=== PATIENT | female | born 1995 | race Caucasian/White ===

== ENCOUNTER 2024-02-19 04:45 | Inpatient (IN) | payer BC, SELFPAY ==
[2024-02-19] VITALS (284 sets, daily range): BP systolic 79–140; BP diastolic 34–83; PULSE 64–176; TEMP 36.8–37.3; O2SAT 77–100; BMI 44.4
--- NOTE | 2024-02-19 05:12 | LDADM ---
This patient, Ria Resendez, was admitted to Labor/Delivery/Recovery 102 on 02/19/24 at 04:45. Plans for labor, pain management and were discussed with patient. Patient/family oriented to hospital policies and general routines including ID bracelet, bed and alarms, visiting hours, pain management, procedures, bathroom and other care routines, personal items, smoking policy, room service/diet and guest tray routines, security routines, and visiting hours. Patient/Family are encouraged to report perceived risks to care and to ask questions if they do not understand what they are told or what they should do. See OBIX for further documentation.
[2024-02-19 05:33] LABS: Basophils Percent Auto 0.3 % (0.2-1.2); Eosinophils Absolute Auto 0.1 K/mm3 (0-0.3); Eosinophils Percent Auto 0.8 % (0-4.4); Hematocrit 36.9 % (37.0-47.0); Hemoglobin 12.5 g/dL (12.0-15.0); Immature Granulocyte Absolute 0.11 K/mm3 (0.00-0.031); Immature Granulocyte Percent A 0.9 % (0-0.5); Lymphocytes Absolute Auto 1.95 K/mm3 (0.9-3.2); Lymphocytes Percent Auto 16.8 % (18.3-44.2); Mean Corpuscular HGB Conc 33.9 g/dl (32-36); Mean Corpuscular Hemoglobin 28.9 pg (26-34); Mean Corpuscular Volume 85.2 fl (80-100); Mean Platelet Volume 9.9 fl (7.4-10.4); Monocytes Absolute Auto 0.7 K/mm3 (0.1-0.6); Monocytes Percent Auto 5.9 % (2.6-8.5); Neutrophils Absolute Auto 8.7 K/mm3 (1.3-6.7); Neutrophils Percent Auto 75.3 % (45.5-73.1); Platelet Count Result 185 k/mm3 (150-375); Red Blood Count 4.33 M/mm3 (4.2-5.4); Red Cell Distribution Width 14.3 % (11.5-14.5); White Blood Count 11.6 K/mm3 (4.5-10.0)
[2024-02-19] MEDS: OXYTOCIN 30 UNITS/NS 500 ML 30 UNITS/500 ML BAG IV CONT (06:00)
[2024-02-19 06:16] LABS: Rapid Plasma Reagin Non-Reactive (NonReactive)
--- NOTE | 2024-02-19 06:16 | WPDANESEPP ---
Anes - Eval Pre Procedure Procedure: Labor epidural Date/Time: 02/19/24 06:16 Surgeon: Joel Preop Diagnosis: Abdominal pain with contractions Pre Op Diagnosis: IOL Patient Data Age: 28 Gender: F Height: Weight: Last Vital Signs Pulse 88 02/19/24 05:59 BP 125/77 02/19/24 05:59 Allergies Allergy/AdvReac Type Severity Reaction Status Date / Time hydrocodone [From Vicodin] Allergy Itching Verified 01/25/24 15:48 Home Medications Medication Instructions Recorded Confirmed Type prenat.vits,naveen,ish-xvcn-pugne 1 tablet 01/25/24 History Laboratory Tests 02/19/24 05:10 WBC 11.6 H K/mm3 (4.5-10.0) RBC 4.33 M/mm3 (4.2-5.4) Hgb 12.5 g/dL (12.0-15.0) Hct 36.9 L % (37.0-47.0) MCV 85.2 fl (80-100) MCH 28.9 pg (26-34) MCHC 33.9 g/dl (32-36) RDW 14.3 % (11.5-14.5) Plt Count 185 k/mm3 (150-375) MPV 9.9 fl (7.4-10.4) Immature Gran % (Auto) 0.9 H % (0-0.5) Neut % (Auto) 75.3 H % (45.5-73.1) Lymph % (Auto) 16.8 L % (18.3-44.2) [place] % (Auto) 5.9 % (2.6-8.5) Eos % (Auto) 0.8 % (0-4.4) Baso % (Auto) 0.3 % (0.2-1.2) Lymph # (Auto) 1.95 K/mm3 (0.9-3.2) [place] # (Auto) 0.7 H K/mm3 (0.1-0.6) Eos # (Auto) 0.1 K/mm3 (0-0.3) Baso # (Auto) 0.0 K/mm3 (0.0-0.1) Abs Immat Gran (auto) 0.11 H K/mm3 (0.00-0.031) Absolute Neuts (auto) 8.7 H K/mm3 (1.3-6.7) Absolute Nucleated RBC 0.000 K/mm3 (0.0-0.012) Nucleated RBC % 0.0 % (0.0-0.2) RPR Non-reactive (NonReactive) HIV 1&2 Ab/P24 Ag 4thGn Pending Blood Type O Negative Antibody Screen Pending : gestational age HCG: positive Patient hx anesthesia problems: none Family hx anesthesia problems: none Results Review: All pre-operative results and documents have been reviewed as part of the pre-operative evaluation. [facility] Past Medical History Medical History Asthma Left foot drop and not yet delivered Family History Family History Other Patient denies significant medical history Social History Social History Smoking status: Never smoker Second hand tobacco smoke exposure: No Substance use: never Do You Feel Safe in your Home?: Yes Lack of Transportation: No Lack of Food: Never True Current Housing: I Have Housing Concerned About Future Housing: No Difficulty Paying Gas/Electric Bills: No Difficulty Paying for Meds: No Currently Unemployed: No Education: Master's Degree or Higher Difficulty w/ Childcare or Family Care: No Spiritual care concerns: No Exam Day of Procedure 02/19/24 06:16 Patient weight: morbidly obese Heart: regular rate and rhythm Lungs: clear to auscultation Airway: Mallampati scale class III Neurological: alert and oriented
[2024-02-19 06:26] LABS: HIV 1/2 Ab P24 Ag Result Negative (Negative)
[2024-02-19] MEDS: LACTATED RINGERS 1,000 ML 125 ML IV CONT ×3 (07:18→21:20)
--- NOTE | 2024-02-19 08:22 | WPDHPUPDATE1 ---
History and Physical Update Update Date/Time: 02/19/24 08:22 28-year-old multiparous female who presents for elective induction of labor. There is some concern about a ofpfr-tvn-fueixhddeew-age baby. Estimated weight around 4000 g. Reassuring status. AROM performed -clear fluid. 1.5/ thick/-2. History and Physical has been reviewed, including an updated exam of the patient. There are NO changes in the patient's condition. Risks, benefits, and alternatives have been discussed and questions answered. Patient agrees to proceed with procedure.
--- NOTE | 2024-02-19 22:19 | PM.OBPRVD ---
OB - Vaginal Delivery Note Procedure Delivery date: 02/19/24 Induction method: AROM and Per Pitocin Protocol Delivery monitor: External FHT and Internal Uterine Route of delivery: Episiotomy description: None Laceration Description: Perineal - 2nd Degree Delivery repair: vicryl Quantitative Blood Loss (ml): 350 Anesthesia type: Epidural Disposition: Floor Complications: No immediate complications Baby Date of : 02/19/24 Time of : 22:01 Gestational Age by Date: 39 score one minute: 9 score five minutes: 9
[2024-02-19] MEDS: OXYTOCIN 30 UNITS/NS 500 ML 30 UNITS/500 ML BAG 125 UNITS IV CONT (23:00)
[2024-02-20] VITALS (18 sets, daily range): BP systolic 102–134; BP diastolic 41–73; PULSE 80–101; RESP 16–20; TEMP 36.1–36.7; O2SAT 95–100
--- NOTE | 2024-02-20 00:22 | PC.NURSE ---
bolus (999) dose of oxytocin was started at 2204 after the cord was cut and clamped
[2024-02-20] MEDS: BENZOCAINE 20% AER SPR (*SP) 56 GM CAN 1 SPRAY TOPICAL (00:23)
[2024-02-20] MEDS: WITCH HAZEL 40 PADS 1 PAD TOPICAL (00:23)
[2024-02-20] MEDS: IBUPROFEN 600 MG TABLET PO ×4 (00:45→20:07)
--- NOTE | 2024-02-20 01:25 | OBPPTRN ---
Patient transferred to post room #285 via wheelchair. Support person present. Oriented to unit, room, information board, rooming in, admission packet and security measures. Patient verbalizes understanding.
[2024-02-20] MEDS: ACETAMINOPHEN 325 MG TABLET 650 MG PO ×4 (04:45→22:37)
[2024-02-20] MEDS: DOCUSATE SODIUM 100 MG CAPSULE PO ×2 (04:45→16:26)
[2024-02-20 05:14] LABS: Hematocrit 35.6 % (37.0-47.0); Hemoglobin 11.4 g/dL (12.0-15.0)
--- NOTE | 2024-02-20 07:37 | WPDANLDPN2 ---
Anes-Prog Note L&D Date/Time: 02/20/24 07:37 Comfortable throughout: labor and delivery Neuraxial method: epidural Epidural/Spinal procedure site: clean & non-tender Neuro status: Neuro function grossly intact. Cardiovascular status: normal Respiratory status: normal Airway patency: baseline Mental status: baseline Post-Op hydration status: normal Vital Signs: Last Vital Signs Temp 97.9 F 02/20/24 04:59 Pulse 80 02/20/24 04:59 Resp 16 02/20/24 04:59 BP 122/66 02/20/24 04:59 Pulse Ox 98 02/20/24 04:59 O2 Del Method Room Air 02/20/24 02:18 Pain score (VAS): 0 I/O: Intake & Output 02/19/24 02/19/24 02/20/24 15:59 23:59 07:59 Intake Total 1000 1700 Output Total 1500 75 Balance -500 1700 -75 Post-procedural complaints: none Patient feedback: Patient satisfied with anesthetic care.
--- NOTE | 2024-02-20 09:20 | PC.NURSE ---
Mother verbalizes she is able to independently latch with appropriate positioning and alignment. She denies any nipple discomfort and is responsively . Infant is currently meeting outcomes for weight, output, jaundice, blood sugar and feeding frequencies of 8-12 times in 24 hours. Mother breastfed her first baby for 14 months. She would like a latch check today and will call out when feeding. Mother is encouraged to call for assistance if her infant doesn?t latch, pain with latching, questions or concerns. Mother voiced understanding of information shared along with the mom/baby guide for an additional resource. Reported to the Primary RN.
--- NOTE | 2024-02-20 12:47 | PM.OBPNVD ---
OB - PN: Subj Subjective Date/time seen: 02/20/24 12:47 Patient comments: no complaints, pain well controlled, incisional pain, tolerating diet and flatus present OB - PN: Obj Data Labs 02/20/24 04:19 Labs: Laboratory Results - last 24 hr 02/20/24 04:19 Hgb 11.4 L Hct 35.6 L Blood Type O Negative Antibody Screen Negative Screen Negative Baby's Blood Type O pos Baby's NEGIN Negative Doses of RhIg Required 1 OB - PN A/P Plan day: 1 Plan: routine care Comments: No problems, routine care Time Spent With Patient Time: Total time spent is greater than 50% in coordination of care (as documented) at patient's floor/unit and/or counseling patient: Exam Const: General: comfortable, no acute distress and alert Resp: Effort & Inspection: normal respiratory effort Auscultation: no crackles, no rales and no rhonchi Cardio: Rate: regular rate Heart sounds: no click, no murmurs and no rubs GI: Inspection: non-distended GI Palp: No Tenderness to palpation present (GI) Auscultation: normal bowel sounds Other: Incision - CDI Extrem: General: normal to inspection, no pedal edema and no calf tenderness
[2024-02-20] MEDS: RHO(D) IMMUNE GLOBULIN 300 MCG/2 ML SYRINGE IM (17:09)
[2024-02-21] MEDS: IBUPROFEN 600 MG TABLET PO ×2 (02:13→10:06)
[2024-02-21] MEDS: ACETAMINOPHEN 325 MG TABLET 650 MG PO ×2 (06:11→13:49)
--- NOTE | 2024-02-21 07:25 | PM.OBPNVD ---
OB - PN: Subj Subjective Date/time seen: 02/21/24 07:25 Interval history: pp day 2 doing well desires d/c home OB - PN: Obj Data Labs 02/20/24 04:19 Labs: Laboratory Results - last 24 hr 02/20/24 04:19 Blood Type O Negative Antibody Screen Negative Screen Negative Baby's Blood Type O pos Baby's NEGIN Negative Doses of RhIg Required 1 OB - PN A/P Plan day: 2 Plan: routine care and discharge home Time Spent With Patient Time: Total time spent is greater than 50% in coordination of care (as documented) at patient's floor/unit and/or counseling patient: Review of Systems Review of Systems: All systems reviewed & are unremarkable except as noted in HPI and below Exam Const: General: cooperative and healthy appearing Resp: Effort & Inspection: normal respiratory effort Cardio: Rate: regular rate
--- NOTE | 2024-02-21 07:27 | PM.OBDSVD ---
DS: Admitting Diagnosis Discharge Date 02/21/24 Admitting Diagnosis IOL DS: Discharge Diagnosis Discharge Diagnosis (1) Vaginal delivery: Code(s): O80 - Encounter for full-term uncomplicated delivery Status: Acute OB - DS: Summary OB Procedures : None OB Procedures Intrapartum: Spontaneous Vag Delivery OB Procedures: : None Peripartum Data Laceration Description: Perineal - 2nd Degree Episiotomy description: None Time Spent with Patient Time attestation: Total time spent providing and/or coordinating discharge services: DS: Data Data Completed and Pending Labs on day of discharge: Labs from last 24 hours 02/20/24 04:19 Blood Type O Negative Antibody Screen Negative Screen Negative Baby's Blood Type O pos Baby's NEGIN Negative Doses of RhIg Required 1 Discharge Plan Discharge Attending physician on discharge: Vahid Maldonado Discharging Clinician: Benita Marshall Patient Disposition: Home, Self-Care Activity: pelvic rest Diet: regular Patient Instructions: Antibiotic Form Stand Alone Forms: General Discharge Information Follow-up/Referrals: Vahid Maldonado MD [Physician] - 4 Weeks Discharge Medications: Continued #2 Tablet 1 tablet Date of admission: 02/19/24 04:45 Primary Care Provider: PHYSICIAN,FOUNDATION RELATIONS MANAGER Admitting Provider: Vahid Maldonado Attending physician on admission: Vahid Maldonado Condition: Stable
[2024-02-21 07:55] VITALS: BP 122/70; PULSE 73; RESP 16; TEMP 36.3; O2SAT 99
[2024-02-21] MEDS: DOCUSATE SODIUM 100 MG CAPSULE PO (08:00)
[2024-02-21] MEDS: MULTIVIT/MIN/PREN/FOL AC/IRON TABLET 1 TAB PO (08:00)
--- NOTE | 2024-02-21 09:05 | PC.NURSE ---
Consulted with mother concerning needs and she shared her ability to independently latch infant optimally without pain. Mother is feeding appropriately for growth of and understands stimulating to eat if needed. Infant has had appropriate feedings in the last 24 hours meets the outcomes for weight, output, blood sugar and jaundice at this time. Mother requested a pump and she received a Zomee and was measured for a 24mm flange, but to size up if it hurts or pinches. Lanolin given. Reinforced understanding of milk production, transition of milk, signs of adequate intake, transition of stool, prevention/relief of engorgement, plugged ducts, mastitis, responsive watching for feeding cues, the different methods of stimulating infant to breastfeed 1-3 hours after the start of the last feeding, community resources, and when to call a provider using the resource of the feeding sheet along with the mom and baby guide. Mother voiced understanding of the information shared, is confident to continue effectively her infant at home, when to call for assistance, denies any additional assistance or education at this time. Reported to the Primary RN.
[2024-02-22 16:21] VITALS: BP 122/69; PULSE 77; RESP 18; TEMP 37; O2SAT 100
== END 2024-02-21 16:50 | disposition home or self-care (01) | DRG 807 ==
LOC: ANHLDR 05:14 → ANHOB2 02-20 01:27
PROVIDERS: Admitting Provider Obstetrics & Gynecology; Visit Provider Obstetrics & Gynecology
DX: O62.3 Precipitate labor (principal); Z37.0 Single live birth; Z3A.39 39 weeks gestation of pregnancy; O70.1 Second degree perineal laceration during delivery; O69.81X0 Labor and delivery complicated by cord around neck, without compression, not applicable or unspecified
CPT/HCPCS: 36415; 85014; 85018; 85025; 85461; 86592; 86703; 86850; 86900; 86901; 90384; A9270; G0432; J2590; J2790; J2795; J7120